=== PATIENT | male | born 1965 | race Caucasian/White ===

== ENCOUNTER 2016-12-17 17:57 | Emergency (ER) | payer MEDICARE ==
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
--- NOTE | ~2016-12-17 | EKG ---
PATIENT: MAYRA GALVAN UNIT #: [id number] Ventricular Rate: 79 BPM Atrial Rate: 79 BPM P-R Interval: 132 ms QRS Duration: 82 ms Q-T Interval: 348 ms QTC Calculation(Bezet): 399 ms P [place]: -1 degrees Calculated R [place]: 9 degrees Calculated T [place]: 23 degrees Diagnosis Line: Normal sinus rhythm Diagnosis Line: Normal ECG Diagnosis Line: When compared with ECG of 28-JAN-2015 01:47, Diagnosis Line: No significant change was found Diagnosis Line: Confirmed by ADELITA FIGUEROA MD ([id number]) on 12/18/2016 Diagnosis Line: 4:31:58 PM INTERPRETING MD: HENRY KHAN
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
[~2016-12-17 17:57] MED LIST: AMITRIPTYLINE H25 MG PO; FLEXERIL PO; FLEXERIL10 MG PO; GLUCOTROL XL PO; JANUVIA25 MG PO; LIPITOR PO; METFORMIN HCL500 M1 PO; METFORMIN PO; MICRONASE5 M1 PO; MORPHINE IV; MORPHINE PAIN PUMP; OXYCONTIN PO; OXYCONTIN80 MG PO; PERCOCET 10/3251 TAB PO; PRILOSEC PO; [UNRECOGNIZED DRUG - OTHER] IV
[2016-12-17] MEDS ORDERED: GLUCOPHAGE500 MG PO (18:00)
[2016-12-17 18:37] LABS: BASOPHIL# 0.1 X10e3 (0-0.3); BASOPHIL% 0.9 % (0-2.5); DIFF IND NO; EOSINOPHIL# 0.2 X10e3 (0-0.7); EOSINOPHIL% 1.8 % (0.0-7.0); HEMATOCRIT 39.8 % (38.0-50.0); HEMOGLOBIN 13.2 gm/dL (13.0-16.0); LYMPHOCYTE# 1.9 X10e3 (1.0-3.5); LYMPHOCYTE% 15.8 % (17.0-45.0); MEAN CELL VOLUME 81.5 FL (83-96); MEAN CORPUSCULAR HEMOGLOBIN 26.9 PG (28-34); MEAN CORPUSCULAR HGB CONC 33.1 g/dL (30-36); MEAN PLATELET VOLUME 8.7 FL (6.5-11.5); MONOCYTE# 0.6 X10e3 (0-1.0); MONOCYTE% 5.2 % (3.0-12.0); NEUTROPHIL% 76.3 % (40-75); PLATELET COUNT 220 X10e3 (140-420); RED BLOOD COUNT 4.89 X10e (3.90-5.60); RED CELL DISTRIBUTION WIDTH 13.8 % (11.0-15.5); WHITE BLOOD COUNT 11.8 X10e3 (4.0-10.5)
[2016-12-17 18:54] LABS: ALBUMIN SERUM 4.1 g/dL (3.5-5.0); BILIRUBIN, DIRECT 0.1 mg/dL (0.0-0.2); BILIRUBIN,INDIRECT 0.3 mg/dL (0.0-0.9); BILIRUBIN,TOTAL 0.4 mg/dL (0.2-2.0); BUN/CREATININE RATIO 18.18; CALCIUM SERUM 8.7 mg/dL (8.4-10.2); CREATININE SERUM 1.1 mg/dL (0.6-1.4); GLOM FILT RATE Estimated 76.3 mL/min (>60); POTASSIUM 4.4 mmol/L (3.5-5.1); PROTEIN TOTAL SERUM 7.3 g/dL (6.0-8.3)
[2016-12-17 20:38] LABS: URINE APPEARANCE CLEAR; URINE BLOOD NEG (NEG); URINE COLOR YELLOW; URINE GLUCOSE NEG (NORM); URINE KETONE TRACE (NEG); URINE LEUKOCYTE ESTERASE NEG (NEG); URINE NITRATE NEG (NEG); URINE SOURCE CLEAN CATCH; URINE SPECIFIC GRAVITY >=1.030 (1.003-1.035)
[2016-12-17 20:40] LABS: MICRO INDICATED? NO; URINE BILIRUBIN NEG (NEG); URINE PROTEIN NEG (NEG)
[2016-12-17 20:52] LABS: AMPHETAMINE NEG (NEG); BARBITURATES NEG (NEG); BENZODIAZEPINES NEG (NEG); COCAINE NEG (NEG); MARIJUANA NEG (NEG); OPIATES POS (NEG); TRICYCLIC ANTIDEPRESSANTS NEG (NEG); U METHADONE NEG (NEG)
[2016-12-19 05:15] LABS: POC - CKMB 6.1 ng/mL (0.0-7.9)
[2016-12-19 05:16] LABS: POC - TROPONIN <0.05 ng/mL (<=0.05)
== END 2016-12-17 21:28 | disposition home or self-care (01) ==
LOC: SED 17:57
PROVIDERS: Emergency Medicine
DX: I95.1 Orthostatic hypotension (principal); S09.90XA Unspecified injury of head, initial encounter; S40.011A Contusion of right shoulder, initial encounter; E86.0 Dehydration; E11.9 Type 2 diabetes mellitus without complications; X58.XXXA Exposure to other specified factors, initial encounter
CPT/HCPCS: 36415; 70450; 73030; 80048; 80076; 80307; 81003; 82553; 82947; 83874; 84484; 85025; 93005; 96360; 99285